=== PATIENT | male | born 1965 ===

== ENCOUNTER → 2016-07-18 | Outpatient (CLI) | payer BC | LOC: RAD 08:11 | PROVIDERS: ATTEND Family Medicine | DX: R11.0 Nausea (principal) | CPT/HCPCS: 78264; A9541 ==

== ENCOUNTER → 2016-07-19 | Outpatient (CLI) | payer BC ==
--- NOTE | 2016-07-19 13:26 | Diagnostic Imaging Report ---
INDICATION: Nausea Patient ingested effervescent crystals followed by liquid barium under fluoroscopic observation. Swallowing motion is unremarkable. Esophagus is of normal caliber. There is a small hiatal hernia noted with mild gastroesophageal reflux. Stomach and duodenum are morphologically normal without evidence of mass or ulceration. IMPRESSION: Small hiatal hernia with mild gastroesophageal reflux. Otherwise, upper GI series is unremarkable. Dictated by: Dictated on workstation # [id number]
== END ==
LOC: RAD 10:15
PROVIDERS: ATTEND Family Medicine
DX: R11.0 Nausea (principal); K44.9 Diaphragmatic hernia without obstruction or gangrene
CPT/HCPCS: 74241